=== PATIENT | female | born 1985 | race African-American/Black ===

== ENCOUNTER 2021-05-04 10:26 | Emergency (ER) | payer MEDICARE, OTHER ==
[~2021-05-04] VITALS: Ht 165.1 cm; Wt 105.0 kg
[2021-05-04 10:36] VITALS: BP 160/85
[2021-05-04] MEDS ORDERED: VISCOUS LIDOCAINE 2% 15 ML UDC PO STA (11:36)
[2021-05-04] MEDS ORDERED: DICYCLOMINE 10 MG/5 ML ORAL SYR PO STA (11:36)
[2021-05-04] MEDS ORDERED: MAGNESIUM/ALUMINUM HYDROXIDE/SIMETHICONE 30ML UDC PO STA (11:36)
[2021-05-04] MEDS ORDERED: IBUP-2029 MT (13:05)
[2021-05-04] MEDS ORDERED: MAG-55 MT (13:05)
== END 2021-05-04 13:19 | disposition home or self-care (01) ==
LOC: ER 10:26
DX: R13.10 Dysphagia, unspecified (principal)
CPT/HCPCS: 70360; 71045; 99284

== ENCOUNTER 2021-06-02 13:36 | Emergency (ER) | payer OTHER ==
[~2021-06-02] VITALS: Ht 167.6 cm; Wt 105.0 kg
[~2021-06-02 13:36] MED LIST: IBUP-2029 MT; MAG-55 MT
[2021-06-02 13:51] VITALS: BP 142/81
== END 2021-06-02 14:28 | disposition left against medical advice (07) ==
LOC: ER 13:36
DX: Z53.21 Procedure and treatment not carried out due to patient leaving prior to being seen by health care provider (principal); R06.02 Shortness of breath
CPT/HCPCS: 93005